=== PATIENT | female | born 1980 | race African-American/Black ===

== ENCOUNTER 2018-10-01 16:56 | Emergency (ER) | payer OTHER ==
[~2018-10-01] VITALS: Ht 165.1 cm; Wt 66.2 kg
[~2018-10-01 16:56] MED LIST: CIPROFLOXACIN500 M1 PO; ZOFRAN ODT4 MG PO
[2018-10-01] MEDS ORDERED: DOXYCYCLINE MO100 M1 PO (18:18)
[2018-10-01] MEDS ORDERED: LIDOCAINE VISC100 ML TOP (18:18)
[2018-10-01] MEDS ORDERED: NORCO 5-325 TA1 EACH PO (18:18)
[2018-10-01 18:34] VITALS: BP 127/85
[2018-10-01 18:59] LABS: URINE BLOOD 1+ (Negative); URINE CLARITY SL CLOUDY; URINE COLOR YELLOW; URINE GLUCOSE-RANDOM NEGATIVE (Negative); URINE KETONES 2+ (Negative); URINE LEUKOCYTES-REFLEX 1+ (Negative); URINE NITRITE-REFLEX NEGATIVE (Negative); URINE PROTEIN 1+ (Negative); URINE SPECIFIC GRAVITY >= 1.030 (1.005-1.030); URINE UROBILINOGEN 0.2 E.U./dl (0.2-1.0)
[2018-10-01 19:03] LABS: ICTOTEST (BILI CONFIRMATORY) Negative (Negative); URINE BILIRUBIN 1+ (Negative)
[2018-10-01 19:06] LABS: SQUAMOUS >10 Many /LPF (0-3)
[2018-10-01 19:07] LABS: BACTERIA-REFLEX >30 Many /HPF (None Seen); URINE RBC 3-10 Few /HPF (0-2); URINE WBC-REFLEX 6-15 Few /HPF (0-5)
[2018-10-01 19:08] LABS: CRYSTALS None Seen /LPF (None Seen); HYALINE CASTS 4-10 Moderate /LPF (None Seen); MUCUS >6 Heavy strn/LPF (None Seen)
== END 2018-10-01 18:50 | disposition home or self-care (01) ==
LOC: M.ERS 16:56
PROVIDERS: Physician Assistant
DX: A59.01 Trichomonal vulvovaginitis (principal); L98.9 Disorder of the skin and subcutaneous tissue, unspecified